=== PATIENT | male | born 1970 | race Caucasian/White ===

== ENCOUNTER 2017-03-20 22:31 | Emergency (ER) | payer OTHER ==
[~2017-03-20] VITALS: Ht 180.3 cm; Wt 90.7 kg
--- NOTE | 2017-03-20 23:00 | ED GI/GU/ABDOMINAL COMPLAINT ---
History of Present Illness General Chief Complaint: Male Genitourinary Problems Stated Complaint: LOWER BACK PAIN/WHEN URINATE THERE IS AN ODAR Source: patient, family Exam Limitations: no limitations Vital Signs & Intake/Output Vital Signs & Intake/Output Vital Signs Date Time Temp Pulse Resp B/P B/P Pulse O2 O2 Flow FiO2 Mean Ox Delivery Rate 03/20 2356 97.0 70 18 150/80 98 03/20 2241 98.1 73 18 160/110 98 Room Air ED Intake and Output 03/21 0000 03/20 1200 Intake Total 30 Output Total Balance 30 Intake, Oral 30 Patient 200 lb Weight Weight Reported by Patient Measurement Method Allergies Coded Allergies: No Known Allergies (03/20/17) Reconcile Medications Cyclobenzaprine HCl 10 MG TABLET 1 TAB PO TID PRN muscle spasm Ibuprofen 600 MG TABLET 1 TAB PO TID PRN back pain with food Triage Note: PT TO TRIAGE WITH C/O LOWER BACK PAIN 5/10, ODOR TO URINE, NO APPETITE, CHILLS xWEEK, DIARRHEA LAST NIGHT, +MILD SOB. VSS. PT AFEBRILE. PT DENIES ABD PAIN, DENIES CHEST PAIN,DENIES N/V. Triage Nurses Notes Reviewed? yes Onset: Gradual Duration: week(s):, waxing and waning Timing: recent history Quality/Severity: back pain Location: back pain Radiation: no radiation Activities at Onset: none Prior Abdominal Problems: none Modifying Factors: Worsens With: movement. Associated Symptoms: "My urine seems darker." HPI: 46 yo gentleman in prior good health presents with 1 week history of lower back pain, worse with movement, and bending over. He has no fever, chills, radiating pain. He notes, "My urine seems darker than usual," but he has no dysuria, fever, chills. He is otherwise well, notes no trauma. Past History Travel History Traveled to [place] past 21 day No Medical History Any Pertinent Medical History? see below for history Surgical History Surgical History: none Psychosocial History What is your primary language [place] Tobacco Use: Never used Family History Hx Contributory? No Review of Systems Review of Systems Constitutional: Reports: no symptoms. EENTM: Reports: no symptoms. Respiratory: Reports: no symptoms. Cardiovascular: Reports: no symptoms. GI: Reports: no symptoms. Genitourinary: Reports: no symptoms. Musculoskeletal: Reports: no symptoms. Skin: Reports: no symptoms. Neurological/Psychological: Reports: no symptoms. Hematologic/Endocrine: Reports: no symptoms. Immunologic/Allergic: Reports: no symptoms. All Other Systems: Reviewed and Negative Physical Exam Physical Exam General Appearance: well developed/nourished, mild distress Head: atraumatic, normal appearance Eyes: Bilateral: normal appearance. Ears, Nose, Throat, Mouth: hearing grossly normal Neck: normal inspection, supple, full range of motion Respiratory: normal breath sounds, chest non-tender, no respiratory distress, quiet respiration, lungs clear Cardiovascular: regular rate/rhythm Gastrointestinal: normal bowel sounds, soft, non-tender, no organomegaly Back: muscle spasm, no vertebral tenderness Extremities: normal range of motion Neurologic/Psych: no motor/sensory deficits, awake, alert, oriented x 3 Skin: intact, normal color, warm/dry Core Measures ACS in differential dx? No Severe Sepsis Present: No Septic Shock Present: No Progress Differential Diagnosis: ureterolithiasis, UTI/pyelo, musculoskeletal back pain Plan of Care: Orders Procedure Date/time Status URINALYSIS 03/20 2300 Complete Laboratory Tests 03/20/177: Urine Color YEL, Urine Clarity CLEAR, Urine pH 6.0, Ur Specific [place] <= 1.005 , Urine Protein NEG, Urine Ketones NEG, Urine Nitrite NEG, Urine Bilirubin NEG, Urine Urobilinogen 0.2, Ur Leukocyte Esterase NEG, Ur Microscopic EXAM NOT REQUIRED, Urine Hemoglobin NEG, Urine Glucose NEG Initial ED EKG: none Departure Departure Disposition: HOME OR SELF CARE Condition: Stable Clinical Impression Primary Impression: Back pain Referrals: QUINTIN HODGE,JASWINDER Sharma (PCP/Family) Departure Forms: Customer Survey General Discharge Information Prescriptions: Current Visit Scripts Ibuprofen 1 TAB PO TID PRN back pain #30 TAB Ref 1 with food Cyclobenzaprine HCl 1 TAB PO TID PRN muscle spasm #30 TAB Ref 1 Comments discussed at length with patient... he has discomfort with bending over. His urine is negative. He has no cva tenderness. I offered labs and an xray. He declines. We discussed a trial of ibuprofen and flexeril and close follow up with his PMD on Saturday or return to the ED if not better. He notes, "I just wanted to make sure I didn't have an infection in my kidneys." He is well appearing and afebrile, safe for discharge.
[2017-03-20] MEDS ORDERED: CYCLOBENZAPRINE10 M1 PO (23:38)
[2017-03-20] MEDS ORDERED: IBUPROFEN600 M1 PO (23:38)
[2017-03-20 23:56] VITALS: BP 150/80
== END 2017-03-20 23:59 ==
LOC: ERH 22:31
DX: M54.5 Low back pain (principal)
CPT/HCPCS: 81003